=== PATIENT | male | born 1965 | race Caucasian/White ===

== ENCOUNTER 2017-02-03 12:11 | Day surgery (SDC) | payer OTHER ==
[2017-02-03] MEDS ORDERED: LIDOCAINE 1% 2 ML INJ ONE ×2 (12:21→12:37)
[2017-02-03] MEDS ORDERED: LIDOCAINE 1% 2 ML INJ ID PRN (12:42)
[2017-02-03] MEDS ORDERED: LR 1,000 ML IV ONE (12:42)
[2017-02-03 12:48] VITALS: PULSE 61
--- NOTE | 2017-02-03 13:33 | PDANEPAE ---
ANE History of Present Illness egd/botox for achalasia ANE Past Medical History - Cardiovascular History Hx Hypertension: No Hx Arrhythmias: No Hx Chest Pain: No Hx Coronary Artery / Peripheral Vascular Disease: No Hx CHF / Valvular Disease: No Hx Palpitations: No - Pulmonary History Hx COPD: No Hx Asthma/Reactive Airway Disease: No Hx Recent Upper Respiratory Infection: No Hx Oxygen in Use at Home: No Hx Sleep Apnea: No Sleep Apnea Screening Result - Last Documented: Negative - Neurologic History Hx Cerebrovascular Accident: No Hx Seizures: No Hx Dementia: No - Endocrine History Hx Diabetes: Yes Endocrine History Comment: HYPOTHYROID - Renal History Hx Renal Disorders: No - Liver History Hx Hepatic Disorders: No - Neurological & Psychiatric Hx Hx Neurological and Psychiatric Disorders: No - Cancer History Hx Cancer: No - Congenital Disorder History Hx Congenital Disorders: No - GI History Hx Gastrointestinal Disorders: Yes Gastrointestinal History Comment: ACID REFLUX - Other Health History Other Health History: NEG - Chronic Pain History Chronic Pain: No - Surgical History Prior Surgeries: FINGER SURG REPAIR X3. EGD X2 ANE Review of Systems Review of systems is: negative Review of Systems: - Exercise capacity Exercise capacity: >=4 METS METS (RN): 4 METS ANE Patient History - Allergies Allergies/Adverse Reactions: No Known Allergies Allergy (Unverified 01/06/17 16:22) - Home Medications Home Medications: Ibuprofen 01/06/17 [Last Taken 01/30/17] Levothyroxine 01/06/17 [Last Taken 02/03/17 09:00] Multivitamin 01/06/17 [Last Taken 02/02/17 08:00] Omeprazole 01/06/17 [Last Taken 02/02/17 20:00] Pravastatin Sodium 01/06/17 [Last Taken 02/02/17 20:00] - NPO status NPO Status: no food or drink >8 hours NPO Since - Liquids (Date): 02/02/17 NPO Since - Liquids (Time): 23:00 NPO Since - Solids (Date): 02/02/17 NPO Since - Solids (Time): 20:30 - Anes Hx Anes Hx: no prior problems - Smoking Hx Smoking Status: Former smoker - Alcohol Use Alcohol Use: None - Family Anes Hx Family Anes Hx: none Family Hx Anesthesia Complications: NEG ANE Labs/Vital Signs - Vital Signs Vital Signs: reviewed preoperatively; see RN documention for details Blood Pressure: 114/73 Heart Rate: 61 Respiratory Rate: 16 O2 Sat (%): 96 Height: 185.42 cm Weight: 90.718 kg ANE Physical Exam - Airway Neck exam: FROM Mallampati Score: Class 3 Mouth exam: normal dental/mouth exam - Pulmonary Pulmonary: no respiratory distress - Cardiovascular Cardiovascular: regular rate and rhythym - ASA Status ASA Status: III ANE Anesthesia Plan Anesthesia Plan: GA with mask
[2017-02-03] MEDS ORDERED: BOTULINUM TOXIN TYPE A 100 UNIT VIAL IM ONE ×2 (13:44→14:05)
--- NOTE | 2017-02-03 13:46 | PDGENHP ---
History & Physical Chief Complaint: Dysphagia History of Present Illness: Achalasia Pertinent Past, Social, Family History: No ETOH. No Tobacco Relevant Physical Exam: NAD. CTA B/L. RRR without m/r/g. ABD soft. NABS. No TTP Cardiorespiratory Assessment: ASA II. Achalasia. EGD with Botox injection
[2017-02-03] MEDS ORDERED: LIDOCAINE 2% 100 MG/5 ML SYR ONE (13:59)
[2017-02-03] MEDS ORDERED: PROPOFOL/EMULSION 500 MG/50 ML BOTTLE IV ONE (14:00)
[2017-02-03] MEDS ORDERED: ONDANSETRON 4 MG/2 ML VIAL IVP PRN (14:10)
[2017-02-03] MEDS ORDERED: ACETAMINOPHEN 500 MG TAB PO PRN (14:10)
[2017-02-03] MEDS ORDERED: ALBUTEROL 3 ML DEYVIAL IH PRN (14:10)
[2017-02-03] MEDS ORDERED: NALOXONE HCL 0.4 MG/ML INJ IVP PRN (14:10)
--- NOTE | 2017-02-03 14:17 | GIREPORT ---
[facility] - Endoscopy Department Patient Name: Shukri Her Procedure Date: 02/03/2017 2:00 PM Patient Type: Outpatient Attending MD/ ER Physician: Shukri Frey MD Procedure: Upper GI endoscopy Indications: Dysphagia, Achalasia Providers: Shukri Frey MD Medicines: Propofol per Anesthesia Complications: No immediate complications. Description of Procedure: After obtaining informed consent, the endoscope was passed under direct vision. Throughout the procedure, the patient's blood pressure, pulse, and oxygen saturations were monitored continuously. The Endoscope was intro duced through the mouth, and advanced to the second part of duodenum. [facility] was accomplished without difficulty. The patient tolerated th e procedure well. Findings: The lumen of the upper third of the esophagus and middle third of the esophagus was moderately dilated. Abnormal motility was noted in the esophagus. The cricopharyngeus was normal. There is a decrease in motility of the esophageal body. The dis nataliya esophagus/lower esophageal sphincter is spastic, but gives up passage t o the endoscope. Normal peristalsis not noted. Area was successfully injected with 100 units botulinum toxin (25 units into each of four quadrants of the LES at 40cm in an antegrade fashion). The stomach was normal. The examined duodenum was normal. Estimated Blood Loss: Estimated blood loss: none. Post Op Diagnosis: - Dilation in the upper third of the esophagus and in the middle third of the esophagus. - Abnormal esophageal motility, established achalasia. Injected with botulinum toxin. - Normal stomach. - Normal examined duodenum. - No specimens collected. Recommendation: - Soft diet. - Continue present medications. - Return to GI office in 3 months. - Patient has a contact number available for emergencies. The signs and symptoms of potential delayed complications were discussed with the pat ient. Return to normal activities tomorrow. Written discharge instructions we re provided to the patient. - Thank you for allowing me to be involved in the care of your patient. Attending Participation: I personally performed the entire procedure without the assistance of a fellow, resident or surg ical assistant distribution manager. Shukri Frey MD Shukri Frey MD 02/03/2017 2:16:52 PM This report has been signed electronicallyDavid MD Tk Number of Addenda: 0 Note Initiated On: 02/03/2017 2:00 PM [email or web address]
--- NOTE | 2017-02-03 14:29 | POSTANESTH ---
Post Anesthetic Evaluation Cardiovascular Status: Normal, Stable Respiratory Status: Normal, Stable Level of Consciousness/Mental Status: Can Participate in Eval Pain Control: Adequate, Prn Tx Ordered Nausea/Vomiting Control: Adequate, Prn Tx Ordered Complications Possibly Related to Anesthesia: None Noted
[2017-02-03 14:44] VITALS: RESP 18; O2SAT 96
[2017-02-03 14:57] VITALS: TEMP 97.9
[2017-02-03 15:06] VITALS: BP 104/75
== END 2017-02-03 15:00 | disposition home or self-care (01) ==
LOC: FSGY 12:11
PROVIDERS: ATTEND Internal Medicine Gastroenterology
PROC: 3E0G8GC Introduction of Other Therapeutic Substance into Upper GI, Via Natural or Artificial Opening Endoscopic (ICD-10-PCS; principal; 2017-02-03 13:30)
DX: R13.10 Dysphagia, unspecified (principal); K22.0 Achalasia of cardia
CPT/HCPCS: J0585; J2001; J2704